=== PATIENT | female | born 1970 | race Caucasian/White ===

== ENCOUNTER 2025-07-10 12:14 | Outpatient (CLI) | payer BC, SELFPAY ==
--- NOTE | 2025-07-10 12:15 | MR_ITS ---
EXAM: MRI of the LEFT SHOULDER WITHOUT CONTRAST CLINICAL HISTORY: Ongoing left shoulder pain. Suspect rotator cuff tear. COMPARISONS: None available. TECHNICAL: MRI sequences of the left shoulder: Axials: PD, T2 Coronals: PD, STIR, T2 Sagittals: PD, T2 SEDATION: None CONTRAST: None FINDINGS: Bones: No fracture or suspicious bone marrow signal abnormality. Coracoacromial arch: Acromion: No os acromiale. Type I-II acromion. Acromioclavicular joint: Mild to moderate osteoarthritis. Coracoclavicular ligament: The coracoclavicular ligament is intact. Rotator cuff muscles/tendons: Supraspinatus: 7 x 7 mm concealed slitlike tear within the supraspinatus tendon insertional footprint contacting the cortical insertional surface, involving greater than 50% of the tendon thickness, and superimposed upon mild supraspinatus tendinopathy best seen on coronal series 5 image 10 and sagittal series 9 image 9. No muscular atrophy. Infraspinatus: Interstitial delamination within and mild tendinopathy of the infraspinatus tendon. Teres minor: The teres minor tendon and muscle are intact. Subscapularis: Ill-defined low-grade partial-thickness bursal sided tearing of the subscapularis tendon superimposed upon mild to moderate subscapularis tendinopathy. Mild atrophy of the subscapularis muscle. Labrum and glenohumeral joint: No evidence of labral tear although evaluation is suboptimal because of nonarthrogram technique. Physiologic amount of joint fluid. The cartilage is not well evaluated by this nonarthrogram study. No convincing evidence of capsular edema or thickening although evaluation is suboptimal because of lack of joint distention. Proximal biceps tendon, long head and short heads: The long and short heads of the proximal biceps tendon are intact. Bursae: Subacromial/subdeltoid: Slight bursitis. Subcoracoid: No convincing subcoracoid bursal thickening/bursitis. IMPRESSION: 1. 7 x 7 mm concealed slitlike tear within the supraspinatus tendon insertional footprint contacting the cortical insertional surface, involving greater than 50% of the tendon thickness, and superimposed upon mild supraspinatus tendinopathy. No subscapularis muscular atrophy. 2. Ill-defined low-grade partial-thickness bursal sided tearing of the subscapularis tendon superimposed upon mild to moderate subscapularis tendinopathy. Mild atrophy of the subscapularis muscle. 3. Interstitial delamination within and mild tendinopathy of the infraspinatus tendon. No infraspinatus muscular atrophy. 4. Slight subacromial/subdeltoid bursitis. 5. Mild to moderate acromioclavicular joint osteoarthritis. 6. Intact biceps tendon. RCB Electronically signed on 07/10/2025 3:25:00 PM by Artur Yi M.D.
== END 2025-07-10 12:15 | disposition home or self-care (01) ==
LOC: MRI 12:16
PROVIDERS: PCP Nurse Practitioner Family; Visit Provider Orthopaedic Surgery Sports Medicine
DX: M25.512 Pain in left shoulder (principal); M75.102 Unspecified rotator cuff tear or rupture of left shoulder, not specified as traumatic; M75.52 Bursitis of left shoulder; M19.012 Primary osteoarthritis, left shoulder
CPT/HCPCS: 73221